=== PATIENT | female | born 1985 ===

== ENCOUNTER → 2024-05-10 09:45 | Outpatient (BNV) | payer OTHER, SELFPAY | PROVIDERS: PCP Internal Medicine; Visit Provider Internal Medicine | DX: Z12.31 Encounter for screening mammogram for malignant neoplasm of breast (principal) | CPT/HCPCS: 77063; 77067 ==

== ENCOUNTER 2024-05-10 09:46 | Outpatient (REF) | payer OTHER, SELFPAY ==
--- NOTE | ~2024-05-10 | MM_ITS ---
EXAMINATION: MM SCREENING DIGITAL BREAST TOMOSYNTHESIS, BILATERAL CLINICAL INFORMATION: Screening. Asymptomatic. COMPARISON: Mammography: Baseline. TECHNIQUE: Digital breast tomosynthesis is performed in both the craniocaudal and mediolateral oblique views along with computer-aided detection (CAD). Synthesized 2D images are generated from the tomosynthesis. FINDINGS: There are scattered areas of fibroglandular density (ACR BI-RADS breast composition Category b). There are no significant masses, abnormal calcifications, or other abnormalities. MM/MM tomosynthesis screening BI IMPRESSION: No mammographic evidence of malignancy. ASSESSMENT: BI-RADS BI-RADS 1 - Negative RECOMMENDATION: Routine annual mammography screening. 1 year F/U This examination should not preclude the clinical evaluation of a suspicious palpable abnormality. This patient's information was entered into a reminder system with a target due date for their next mammogram. Electronically signed by: Mimi Zavaleta DO 06/04/2024 10:09 AM EYAD
== END 2024-05-10 09:47 | disposition home or self-care (01) ==
LOC: HO.MAMMO 09:46
PROVIDERS: PCP Internal Medicine; Visit Provider Internal Medicine
DX: Z12.31 Encounter for screening mammogram for malignant neoplasm of breast (principal)
CPT/HCPCS: 77063; 77067

== ENCOUNTER 2024-08-19 14:18 | Outpatient (AMB) | payer OTHER, SELFPAY ==
--- NOTE | 2024-08-19 14:20 | A.OFFVIS_ITS ---
Vital Signs 08/19/24 14:21 Height 5 ft 2 in Weight 231 lb 2 oz BMI 42.3 BP 133/84 Blood Pressure Location Rt brachial Position Sitting Pulse 101 H Pulse Source Pulse Oximeter Pulse Oximetry (%) 97 Oxygen Delivery Method Room Air Intake Visit Reasons: Vertebrogenic low back pain Allergies mallory Allergy (Mild, Unverified 08/19/24 14:23) RASH latex [Latex] Allergy (Mild, Unverified 08/19/24 14:23) SWELLING HPI Comments Details: Jasmyne is very pleasant 39 years old female who presents in my office with complains on pain in the lower back with radiation into bilateral buttocks and intermittent numbness into bilateral lower extremities. She reports that this pain started in July of 2020. She reported that the pain started when she fell off of the ladder. She reports that prolonged sitting aggravates her pain. She reports flexing forward and flexing backwards makes her pain severe however flexing backwards aggravates her pain more than flexing forward. Because of her pain she can not sleep normally. She can do activity of daily living, she can take care of herself, she can not function normally. She has homemaker and she has children in her household. She is self mobile. Cold applications weather changes in movements aggravate her pain. Heat applications make her pain better. In terms of tissue damage he reports her pain as pulsing, throbbing, pounding, stabbing, lancinating, pinching, cramping, crushing, hot burning, scalding, searing, tingling, stinging, dull, hurting, heavy, tiring, exhausting, spreading, radiating, piercing, tiring squeezing and tearing sensation. She currently takes tramadol as needed for her pain. She received multiple images of her lower lumbar spine, she reports that those images are done at [facility]. She participate in physical therapy last time in 2020 she received such a bad pain aggravation that she decided not to participate in physical therapy anymore. She was under care of [facility] for extended period of time. She received bilateral L3 L4-5 medial branch block 05/05/2023 she reported no pain improvement, interlaminar epidural steroid injection 10/16/2023 which was effective only 4 days, she received consultation from Dr. Link [facility] neurosurgery who did not recommended surgery for this patient. Her past medical history: Type 2 diabetes diet control, depression, GERD, bipolar disorder, migraine headaches. Anxiety. Carpal tunnel syndrome and sleep apnea past surgical history: Hemorrhoidectomy 2014, appen dectomy 2004, hernia repair 1987, laparoscopic sleeve gastrectomy 2013, section umbilical hernia repair. She lives alone with 3 children. She denies smoking cigarettes drinking alcohol or use of the recreational drugs. [facility] Surgical History (Updated 08/19/24 @ 14:27 by Codie Young CMA) H/O section History of carpal tunnel release of both wrists H/O hemorrhoidectomy Hx of appendectomy H/O umbilical hernia repair Family History (Updated 08/19/24 @ 14:25 by Codie Young CMA) Mother Hypertension Diabetes Social History (Updated 08/19/24 @ 14:24 by Codie Young CMA) Household Members: Children Housing: Apartment Alcohol intake: current Alcohol intake frequency: a few times a month Patient Tobacco Use Status: Never used Tobacco Use of substances other than those prescribed or required for medical reasons: No Review of Systems Const Reports no additional complaints ENT Reports Normal hearing present Card Reports no additional complaints Resp Reports no additional complaints GI Reports no additional complaints Reports no additional complaints Musc Reports as per HPI Neuro Reports no additional complaints, Reports Normal hearing present, Denies Abnormal speech present, Denies confusion and Denies Sensory deficit (Neuro) Psych Reports as per HPI and Denies confusion Otf/Lymph Reports no additional complaints Physical Exam Vital Signs: Last Vital Signs Pulse 101 H 08/19/24 14:21 BP 133/84 08/19/24 14:21 Pulse Ox 97 08/19/24 14:21 Oxygen Delivery Method Room Air 08/19/24 14:21 BMI result Body Mass Index 42.3 Const General: no acute distress; No confusion Nutritional Appearance: obese morbidly obese Orientation/consciousness: patient oriented x3 and No confusion Eyes General: appearance normal, both eyes and all related structures Pupils: Equal, round and reactive pupils present EOM: EOMs intact bilaterally Neck Neck: Yes full ROM Chest Chest palpation & inspection: normal inspection of the chest Resp Effort & Inspection: normal respiratory effort, able to speak in complete sentences, normal respiratory pattern, no audible wheezes and no cough Cardio Jugular venous distension: no JVD GI Inspection: Yes normal to inspection Back/Spine/Pelvis Other: Able to stand on bilateral tiptoes in bilateral heels without difficulty. Flexing forward and flexing backwards aggravate her pain. She reports that flexing backwards aggravate her pain more than flexing forward. SLR is negative bilaterally. Jeremiah test is negative bilaterally. Neuro General: patient oriented x3, gait normal and No confusion Cranial nerves: Yes CN's II-XII intact bilaterally, Yes Equal, round and reactive pupils present, Yes Normal hearing present and Yes Ability to bilaterally elevate shoulders present Speech: No Abnormal speech present Gait exam (Neuro): Normal gait present Motor exam (neuro): 5/5 motor strength present throughout Sensory Exam: No Sensory deficit (Neuro) Extrem General: No pedal edema Psych Speech and movement: Normal speech and movement present Affect: normal affect Attitude: cooperative Thought process: Normal thought process present Thought content: Normal thought content present Insight: Good insight present (Psych) Judgement: Good judgement present (Psych) Results Reviewed Results Reviewed: MRI lumbar spine [facility] with and without contrast 01/06/2023 alignment vertebra marrow and discs: Alignment is normal. Vertebral body heights are preserved. Minimal Modic type 1 degenerative changes are noted at L3-L4 and L4-5. Disc desiccation L3-L4 through L5-S1 with mild loss of intervertebral disc height. Posterior annular fissure noted L3-L4 L4-5. Multilevel facet arthropathy including visualized lower thoracic levels. Conus is normal in signal and contour. Normal level of termination at L1. No abnormal intradural enhancement. Paraspinal soft tissues are unremarkable. Lawn L2: L1-L2: Facet spurring and ligamentum flavum thickening. No significant canal stenosis or neural foraminal narrowing. L2-L3: Facet spurring and ligamentum flavum thickening. No significant canal stenosis or neural foraminal narrowing. L3-L4: Disc bulge with small central protrusion. Ligamentum flavum thickening and facet arthropathy. No significant canal stenosis. Mild left and moderate right neural foraminal narrowing. L4-5: Diffuse disc bulge with central protrusion component which has a Riddhi or fissure ligamentum flavum thickening and facet arthropathy. Mild narrowing of the spinal canal with crowding but no definitive compression of the traversing L5 nerve roots. This is more pronounced on the left side than on the right. There is mild bilateral neural foraminal narrowing. Findings are not significantly changed. L5-S1: Disc bulge with small left subarticular protrusion. Facet spurring. Crowding of the traversing left S1 nerve roots although there is no definitive nerve root compression. No significant canal stenosis. Mild left and significant right neural foraminal narrowing. Assessment & Plan Assessment & Plan (1) Chronic pain syndrome: Code(s): G89.4 - Chronic pain syndrome Category: Medical (2) Vertebrogenic low back pain: Code(s): M54.51 - Vertebrogenic low back pain Category: Medical (3) Spondylosis of lumbar region without myelopathy or radiculopathy: Code(s): M47.816 - Spondylosis without myelopathy or radiculopathy, lumbar region Category: Medical (4) Disc degeneration, lumbar: Code(s): M51.369 - Other intervertebral disc degeneration, lumbar region without mention of lumbar back pain or lower extremity pain Category: Medical Plan This patient most likely suffering from multiple pain generators off of the lumbar spine. She has Modic type 1 changes at L3-L4 and L5 vertebra. She also has very pronounced facet arthropathy in the lower lumbar spine. She was approved for intercept BVN radiofrequency ablation. We need to resubmit the request to her insurance company to do it in our facility. With not a satisfactory outcome of intercept procedure diagnostic medial branch block can not be repeated for her to evaluate involvement of the facet arthropathy in generation of her pain. I requested the patient to bring us the disc from the [facility] radiology department's for proper planning of the BVN procedure. Coding Level of Care Code New Pt Level 3 (45700) Diagnoses Chronic pain syndrome G89.4 Vertebrogenic low back pain M54.51 Spondylosis of lumbar region without myelopathy or radiculopathy M47.816 Disc degeneration, lumbar M51.369
[2024-08-19 14:21] VITALS: BP 133/84; PULSE 101; O2SAT 97; BMI 42.3
== END 2024-08-19 14:55 | disposition home or self-care (01) ==
PROVIDERS: PCP Internal Medicine; Visit Provider Anesthesiology
DX: G89.4 Chronic pain syndrome (principal); M54.51 Vertebrogenic low back pain; M47.816 Spondylosis without myelopathy or radiculopathy, lumbar region; M51.369 Other intervertebral disc degeneration, lumbar region without mention of lumbar back pain or lower extremity pain
CPT/HCPCS: 99203

== ENCOUNTER → 2024-08-19 14:18 | Outpatient (BNVA) | payer OTHER, SELFPAY | PROVIDERS: PCP Internal Medicine; Visit Provider Anesthesiology | DX: M47.816 Spondylosis without myelopathy or radiculopathy, lumbar region (principal); M51.360 Other intervertebral disc degeneration, lumbar region with discogenic back pain only; G43.909 Migraine, unspecified, not intractable, without status migrainosus; G89.4 Chronic pain syndrome | CPT/HCPCS: 99202 ==

== ENCOUNTER 2024-10-27 09:28 | Outpatient (AMB) | payer OTHER, SELFPAY ==
[2024-10-27 09:52] VITALS: BP 135/90; PULSE 114; O2SAT 97; BMI 43.2
--- NOTE | 2024-10-27 09:52 | MHC.OFFVIS ---
Vital Signs 10/27/24 09:52 Height 5 ft 2 in Weight 236 lb BMI 43.2 BP 135/90 H Blood Pressure Location Lt brachial Pulse 114 H Pulse Oximetry (%) 97 Oxygen Delivery Method Room Air Intake Visit Reasons: Discuss Alternate Procedure Options Mobile Sales Assistant Required: No Allergies mallory Allergy (Mild, Unverified 10/27/24 09:53) RASH latex [Latex] Allergy (Mild, Unverified 10/27/24 09:53) SWELLING Medication List - Last Reconciled 10/27/24 by Yissel Lee, ENROLLED AGENT atomoxetine 18 mg PO QAM cariprazine (Vraylar) 6 mg PO DAILY lidocaine 5% 1 patch topical DAILY tramadol mg PO HPI Comments Details: Jasmyne is back in my office to discuss the situation at hands. Her insurance company [employer] considers intercept RFA procedure experimental. They also consider sprint PNS experimental as well. I recommended the patient to change her insurance for [employer]. Unfortunately the open enrollment period we will start only in June. The patient would be eligible for new insurance only in 2025. I decided to offer this patient therapeutic bilateral L3-L4 -L5* medial branch block therapeutic so the patient will not be suffering needlessly. I also recommended her to come to the office 1 day before the procedure so we can show her where on the back we need to place lidocaine patches. She was under care of [facility] and she received diagnostic medial branch block which resulted in very good pain relief. very pleasant 39 years old female who presents in my office with complains on pain in the lower back with radiation into bilateral buttocks and intermittent numbness into bilateral lower extremities. She reports that this pain started in July of 2020. She reported that the pain started when she fell off of the ladder. She reports that prolonged sitting aggravates her pain. She reports flexing forward and flexing backwards makes her pain severe however flexing backwards aggravates her pain more than flexing forward. Because of her pain she can not sleep normally. She can do activity of daily living, she can take care of herself, she can not function normally. She has homemaker and she has children in her household. She is self mobile. Cold applications weather changes in movements aggravate her pain. Heat applications make her pain better. In terms of tissue damage he reports her pain as pulsing, throbbing, pounding, stabbing, lancinating, pinching, cramping, crushing, hot burning, scalding, searing, tingling, stinging, dull, hurting, heavy, tiring, exhausting, spreading, radiating, piercing, tiring squeezing and tearing sensation. She currently takes tramadol as needed for her pain. She received multiple images of her lower lumbar spine, she reports that those images are done at [facility]. She participate in physical therapy last time in 2020 she received such a bad pain aggravation that she decided not to participate in physical therapy anymore. She was under care of [facility] for extended period of time. She received bilateral L3 L4-5 medial branch block 05/05/2023 she reported pain improvement, interlaminar epidural steroid injection 10/16/2023 which was effective only 4 days, she received consultation from Dr. Link [facility] neurosurgery who did not recommended surgery for this patient. Her past medical history: Type 2 diabetes diet control, depression, GERD, bipolar disorder, migraine headaches. Anxiety. Carpal tunnel syndrome and sleep apnea past surgical history: Hemorrhoidectomy 2014, appendectomy 2004, hernia repair 1987, laparoscopic sleeve gastrectomy 2013, section umbilical hernia repair. She lives alone with 3 children. She denies smoking cigarettes drinking alcohol or use of the recreational drugs. [facility] Surgical History (Updated 08/19/24 @ 14:27 by Codie Young CMA) H/O section History of carpal tunnel release of both wrists H/O hemorrhoidectomy Hx of appendectomy H/O umbilical hernia repair Family History (Updated 08/19/24 @ 14:25 by Codie Young CMA) Mother Hypertension Diabetes Social History (Updated 08/19/24 @ 14:24 by Codie Young CMA) Household Members: Children Housing: Apartment Alcohol intake: current Alcohol intake frequency: a few times a month Patient Tobacco Use Status: Never used Tobacco Review of Systems Const All systems reviewed & are unremarkable except as noted in HPI and below ENT Reports Normal hearing present Neuro Reports Normal hearing present, Denies Abnormal speech present, Denies confusion and Denies Sensory deficit (Neuro) Psych Denies confusion Physical Exam Vital Signs: Last Vital Signs Pulse 114 H 10/27/24 09:52 BP 135/90 H 10/27/24 09:52 Pulse Ox 97 10/27/24 09:52 Oxygen Delivery Method Room Air 10/27/24 09:52 BMI result Body Mass Index 43.2 Const General: no acute distress; No confusion Nutritional Appearance: obese morbidly obese Orientation/consciousness: patient oriented x3 and No confusion Eyes General: appearance normal, both eyes and all related structures Pupils: Equal, round and reactive pupils present EOM: EOMs intact bilaterally Neck Neck: Yes full ROM Chest Chest palpation & inspection: normal inspection of the chest Resp Effort & Inspection: normal respiratory effort, able to speak in complete sentences, normal respiratory pattern, no audible wheezes and no cough Cardio Jugular venous distension: no JVD GI Inspection: Yes normal to inspection Back/Spine/Pelvis Other: Able to stand on bilateral tiptoes in bilateral heels without difficulty. Flexing forward and flexing backwards aggravate her pain. She reports that flexing backwards aggravate her pain more than flexing forward. SLR is negative bilaterally. Jeremiah test is negative bilaterally. Neuro General: patient oriented x3, gait normal and No confusion Cranial nerves: Yes CN's II-XII intact bilaterally, Yes Equal, round and reactive pupils present, Yes Normal hearing present and Yes Ability to bilaterally elevate shoulders present Speech: No Abnormal speech present Gait exam (Neuro): Normal gait present Motor exam (neuro): 5/5 motor strength present throughout Sensory Exam: No Sensory deficit (Neuro) Extrem General: No pedal edema Psych Speech and movement: Normal speech and movement present Affect: normal affect Attitude: cooperative Thought process: Normal thought process present Thought content: Normal thought content present Insight: Good insight present (Psych) Judgement: Good judgement present (Psych) Results Reviewed Results Reviewed: MRI lumbar spine [facility] with and without contrast 01/06/2023 alignment vertebra marrow and discs: Alignment is normal. Vertebral body heights are preserved. Minimal Modic type 1 degenerative changes are noted at L3-L4 and L4-5. Disc desiccation L3-L4 through L5-S1 with mild loss of intervertebral disc height. Posterior annular fissure noted L3-L4 L4-5. Multilevel facet arthropathy including visualized lower thoracic levels. Conus is normal in signal and contour. Normal level of termination at L1. No abnormal intradural enhancement. Paraspinal soft tissues are unremarkable. Lawn L2: L1-L2: Facet spurring and ligamentum flavum thickening. No significant canal stenosis or neural foraminal narrowing. L2-L3: Facet spurring and ligamentum flavum thickening. No significant canal stenosis or neural foraminal narrowing. L3-L4: Disc bulge with small central protrusion. Ligamentum flavum thickening and facet arthropathy. No significant canal stenosis. Mild left and moderate right neural foraminal narrowing. L4-5: Diffuse disc bulge with central protrusion component which has a Ridhdi or fissure ligamentum flavum thickening and facet arthropathy. Mild narrowing of the spinal canal with crowding but no definitive compression of the traversing L5 nerve roots. This is more pronounced on the left side than on the right. There is mild bilateral neural foraminal narrowing. Findings are not significantly changed. L5-S1: Disc bulge with small left subarticular protrusion. Facet spurring. Crowding of the traversing left S1 nerve roots although there is no definitive nerve root compression. No significant canal stenosis. Mild left and significant right neural foraminal narrowing. Assessment & Plan Assessment & Plan (1) Chronic pain syndrome: Code(s): G89.4 - Chronic pain syndrome Category: Medical (2) Vertebrogenic low back pain: Code(s): M54.51 - Vertebrogenic low back pain Category: Medical (3) Spondylosis of lumbar region without myelopathy or radiculopathy: Code(s): M47.816 - Spondylosis without myelopathy or radiculopathy, lumbar region Category: Medical (4) Disc degeneration, lumbar: Code(s): M51.369 - Other intervertebral disc degeneration, lumbar region without mention of lumbar back pain or lower extremity pain Category: Medical Plan This patient most likely suffering from multiple pain generators off of the lumbar spine. She has Modic type 1 changes at L3-L4 and L5 vertebra. She also has very pronounced facet arthropathy in the lower lumbar spine. Her insurance company does not cover intercept BVN. It does not cover sprint PNS. I recommended her to change her insurance company. I also offered her L3-L4 dorsal ramus L5* bilateral therapeutic medial branch block with steroids to help her pain slightly better. Patient agreed to go for the procedure. She needs to come for the nursing visit on day before the procedure so we can show her were to apply lidocaine patches. Patient Instructions: I here by testify that I spent 32 minutes in conversation with this patient as well as planning her care evaluating her prior diagnostic records and organizing this note. Coding Level of Care Code Est Pt Level 4 (49517) Diagnoses Chronic pain syndrome G89.4 Vertebrogenic low back pain M54.51 Spondylosis of lumbar region without myelopathy or radiculopathy M47.816 Disc degeneration, lumbar M51.369
--- OUTSIDE RECORDS SUMMARY | 2024-10-27 10:41 | XMS_ITS | Clinical Summary ---
Author Organization [facility] Address [address] [place] [address] [address] [place] [address] Care Team Providers Care Clinical Informatics Physician Name Role Phone Unavailable Primary Care Provider Unavailabl e Allergies Active Allergy Reactions Criticality Noted Date Comments Will 04/23/2016 Latex Dermatitis,Hives 04/25/2016 Medications Vraylar 6 MG capsule Take 1 capsule by mouth Once per day. Active Encounters Date Type Department Care Team Description 09/07/2024 8:00 AM EST Office Visit [facility] ADULT DENTAL [address] [place] [address] Eddi Celaya Dental calculus (Primary Dx); Dental caries; Secondary dental caries associated with failed or defective dental rastafarian; Gingivitis from Last 3 Months Social History Tobacco Use Types Packs/Day Years Used Date Smoking Tobacco: Never Passive Smoke Exposure: Never Smokeless Tobacco: Never Tobacco Cessation:Counseling Given: Not Answered Comments Unknown Sex and Gender Information Value Date Recorded Sex Assigned at Female 07/15/2022 10:19 AM EDT Legal Sex Female 10:19 AM EDT Gender Identity Female 07/15/2022 10:19 AM EDT Sexual Orientation Straight 07/15/2022 10 :19 AM EDT Last Filed Vital Signs Vital Sign Reading Time Taken Comments Blood Pressure 134/80 09/07/2024 8:08 AM EST Pulse 75 09/07/2024 8:08 AM EST Temperature - - Respiratory Rate - - Oxygen Saturation - - Inhaled Oxygen Concentration - - Weight - - Height - - Body Mass Index - - Plan of Treatment Upcoming Encounters Date Type Department Care Team ([facility] st Contact Info) Description 11/25/2024 2:00 PM EDT Office Visit [facility] ADULT DENTAL [address] [place] [address] John Blevins DMD [address] [place] [address] Health Maintenance Due Date Last Done Comments Depression Screening 1983 HIV Screening 1983 Lipid Panel 1983 SDOH Screening 1983 Alcohol/Substance Use Screening 1995 Family Planning (PISQ) 1998 Hepatitis C Screening 2001 Hepatitis B Vaccines (1 of 3 - 19+ 3-dose series) 2002 Pap Smear 2004 Cervical Cancer Screening 2013 HPV/Cotest 2013 Mammogram 2023 Dental Oral Exam 03/09/2025 09/07/2024, , 12/06/2020, Additional history exists Dental Prophylaxis 03/09/2025 09/07/2024, 0 12/06/2020, 05/20/2017, Additional history exists Tobacco Screening 09/07/2025 09/07/2024 Dental X-Ray: Bitewings 09/08/2025 09/07/20, 04/12/2022, 12/06/2020, Additional history exists Dental X-Ray: Full Mouth 09/08/2027 09/07/2024, 08/05/2016 DTaP/Tdap/Td Vaccines (3 - Td or Tdap) 03/22/2031 03/22/2021, 06/12/2017 Zoster Vaccines (1 of 2) 2033 RSV Patients and Patients Aged 60 years or older (1 - 1-dose 75+ series) 2058 Pneumococcal Vaccine: Pediatrics (0 to 5 Years) and At-Risk Patients (6 to 49) Years) Completed 12/28/2021 COVID-19 Vaccine Completed 06/03/2024, , 01/31/2021 Influenza Vaccine Completed 06/03/2024, , 06/03/2020, Additional history exists HIB Vaccines Aged Out No longer eligi ble based on patient's age to complete this topic HPV Vaccines Aged Out No longer eligi ble based on patient's age to complete this topic Hepatitis A Vaccines Aged Out No long er eligible based on patient's age to complete this topic IPV Vaccines Aged Out No longer eligi ble based on patient's age to complete this topic Meningococcal Vaccine Aged Out No bonita chelsea eligible based on patient's age to complete this topic RSV under 20 months Aged Out No longe r eligible based on patient's age to complete this topic Rotavirus Vaccines Aged Out No longer eligible based on patient's age to complete this topic Procedures Procedure Name Priority Date/Time Associated Diagnosis Comments PERIODIC ORAL EVALUATION - ESTABLISHED PATIENT Routine 09/07/2024 8:00 AM EST Dental caries Secondary dental caries associated with failed or defective dental rastafarian Gingivitis COMPREHENSIVE PERIODONTAL EVALUATION - NEW OR ESTABLISHED PATIENT Routine 09/07/2024 8:00 AM EST Dental caries Secondary dental caries associated with failed or defective dental rastafarian Gingivitis ORAL HYGIENE INSTRUCTIONS Routine 2023 8:00 AM EST Dental caries Secondary dental caries associated with failed or defective dental rastafarian Gingivitis DIAGNOSTIC - DIAGNOSTIC IMAGING - INTRAORAL - COMPREHENSIVE SERIES OF RADIOGRAPHIC IMAGES Routine 09/07/2024 8:00 AM EST Dental caries Secondary dental caries associated with failed or defective dental rastafarian Gingivitis PROPHYLAXIS - ADULT Routine 09/07/2024 8 :00 AM EST Dental caries Secondary dental caries associated with failed or defective dental rastafarian Gingivitis ADJUNCTIVE GENERAL SERVICES - PROFESSIONAL VISITS - CASE PRESENTATION, SUBSEQUENT TO DETAILED AND EXTENSIVE TREATMENT PLANNING Routine 09/07/2024 8:00 AM EST Dental caries Secondary dental caries associated with failed or defective dental rastafarian Gingivitis 9 MIL COMPOSITE FILLING Routine 09/07/20 12:00 AM EST from Last 3 Months Insurance [facility] MEDICAID STAND ADULT
--- OUTSIDE RECORDS SUMMARY | 2024-10-27 10:41 | XMS_ITS | Encounter Summary ---
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 Impingement syndrome of left shoulder Procedures MR Shoulder wo Contrast Left Jesse Pierre MD [address] [address] Phone: tel: fax: [facility] [address] [place] [address] Phone: tel: Referral ID Status Reason Start Date Expiration Date V isits Requested Visits Authorized [id number] Pending Review 10/18/2024 10/18/2025 1 1 Reason for Visit * Reason Comments Follow-up Encounter Details Date Type Department Care Team (Latest Contact Info) Description 10/18/2024 10:30 AM EST Office Visit [facility] - [place] [address] 175 [facility] [address] [place] [address] Jesse Pierre MD 175 [facility] [address] [place] [address] 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 (Primary Dx); Impingement syndrome of left shoulder Social History Tobacco Use Types Packs/Day Years Used Date Smoking Tobacco: Never Smokeless Tobacco: Former Alcohol Use Standard Drinks/Week Comments Never 0 (1 standard drink = 0.6 oz pur e alcohol) Comments Unknown Sex and Gender Information Value Date Recorded Sex Assigned at Not on file Legal Sex Female 3:58 AM EST Gender Identity Not on file Sexual Orientation Not on file documented as of this encounter Last Filed Vital Signs Vital Sign Reading Time Taken Comments Blood Pressure - - Pulse - - Temperature - - Respiratory Rate - - Oxygen Saturation - - Inhaled Oxygen Concentration - - Weight 108 kg (238 lb) 10/18/2024 10:35 AM EST Height 157.5 cm (5' 2 ) 10/18/2024 10:35 AM EST Body Mass Index 43.53 10/18/2024 10:35 AM EST documented in this encounter Progress Notes * Jesse Pierre MD - 10/18/2024 10:30 AM EST Reason For Visit: Follow-up of the Left Shoulder Patient: Jasmyne Patten : 1985 VISIT DATE: 10/18/2024 HPI: Jasmyne Patten is a 39 y.o. year old female who presents follow up on her left shoulder. She had significant relief in her left shoulder for a few months after her last visit cortisone shot. Pain has returned. Fatigue and pain with any mid range arc of motion. Also has difficulty sleeping at night. ROS: GENERAL: negative MUSCULOSKELETAL: See HPI The remainder of the review of systems is noncontributory Allergies: Allergies Allergen Reactions Will Latex Rash Past Medical History: has a past medical history of Asthma, Bipolar disorder ([facility]), Esophageal reflux, Low back pain, Migraines, and Mood swings. Social History: Social History Tobacco Use Smoking status: Never Smokeless tobacco: Former Substance Use Topics Alcohol use: Never Past Surgeries: Past Surgical History: Procedure Laterality Date APPENDECTOMY PROCEDURE: HISTORICAL APPENDECTOMY BARIATRIC SURGERY PROCEDURE: PA LAPS GSTRC RSTRICTIV PX LONGITUDINAL GASTRECTOMY; COMMENT: Sleeve gastrectomy SECTION 06/11/2021 PROCEDURE: HISTORICAL DELIVERY OTHER SURGICAL HISTORY PROCEDURE: PA RPR UMBILICAL HRNA 5 YRS/> REDUCIBLE TUBAL LIGATION 06/11/2021 PROCEDURE: HISTORICAL TUBAL LIGATION Medications: Outpatient Medications Marked as Taking for the 10/18/24 encounter (Office Visit) with Jesse Pierre MD Medication Sig Dispense Refill acetaminophen (TYLENOL 8 HOUR) 650 mg 8 hr tablet Take 1 tablet (650 mg total) by mouth. Botox 200 unit injection famotidine (PEPCID) 40 mg tablet Take 1 tablet (40 mg total) by mouth at bedtime. lidocaine (LIDODERM) 5 % patch APPLY ONE PATCH UP TO A 12 HOUR PERIOD PER DAY NEEDED FOR PAIN. pantoprazole (PROTONIX) 40 mg EC tablet Take 1 tablet (40 mg total) by mouth 1 (one) time each day. traMADoL (ULTRAM) 50 mg tablet Take 1 tablet (50 mg total) by mouth every 6 (six) hours if needed. for moderate pain Max Daily Amount: 200 mg Vraylar 6 mg capsule Take 1 capsule (6 mg total) by mouth 1 (one) time each day. Physical Exam: Vitals: 10/18/24 1035 Weight: 108 kg (238 lb) Height: 1.575 m (62 ) APPEARANCE: Alert, oriented, no acute distress LEFTSHOULDER SHOULDER EXAM: LEFT Inspection: Normal-appearing shoulder. Palpation: Tenderness of the anterior lateral edge of the acromion at the greater tuberosity. No significant AC joint tenderness. ROM: Active near full range of motion Passive near full range of motion Neurovascular: No gross deficits distally Strength: 4/5 supraspinatus. Pain to resisted testing. Normal infraspinatus. Normal subscapularis. Special Tests: Positive Neer. Positive Gagnon. Imaging: ORTHO X-RAY EXAM OF SHOULDER (2 VIEWS) Left shoulder x-rays February 25, 2024. AP, Grashey, Y lateral, axillary views. Located glenohumeral joint with good preservation of the glenohumeral articular cartilage. No acute osseous abnormalities. Essentially normal x-rays. Assessment and Plan: 1. 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 Impingement syndrome of left shoulder Distant pain. Temporary relief from injection. Limiting daily activities. At this point, I am goingto order an MRI. Will also place referral for physical therapy. 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 ??No tendon retraction. Biceps tendinosis. Thickening and high signal of the inferior glenohumeral joint capsule with high signal in the rotator interval and relative paucity of glenohumeral joint fluid. ??Constellation of findings suggests adhesive capsulitis. Curved acromial undersurface with lateral acromial downsloping. ??Findings predispose the patient to impingement. Small subacromial/subdeltoid bursal fluid which may reflect bursitis and/or joint fluid extending through the rotator cuff defect. -------- FINAL REPORT -------- Dictated By: CHERELLE GARCIA Dictated Date: 10/21/2024 11:00 ET Assigned Physician: CHERELLE GARCIA Reviewed and Electronically Signed By: CHERELLE GARCIA Signed Date: 10/21/2024 11:18 ET Workstation ID: [id number] Transcribed By: Self Edit Transcribed Date: 10/21/2024 11:00 ET Narrative 10/21/2024 11:18 AM EST PROCEDURE: Left shoulder MRI INDICATION: Pain TECHNIQUE: Multiplanar, multisequence MRI of the left shoulder Without contrast. COMPARISON: ??No priors available. FINDINGS: Advanced rotator cuff tendinosis with focal full-thickness tear of the posterior supraspinatus fibers measuring approximately 10 mm in AP dimension approximately 1.5 cm from the footprint. ??No tendon retraction. Infraspinatus and subscapularis tendinosis without tear. Muscle bulk is preserved. Biceps tendon is present within the bicipital groove and intact at the superior glenoid tubercle. ??Biceps tendinosis at the intra-articular portion. No labral tear. Glenohumeral alignment is preserved. ??No focal cartilage defects. ??No glenohumeral joint effusion. Thickening and high signal of the inferior glenohumeral joint capsule with high signal in the rotator interval and relative paucity of glenohumeral joint fluid. Glenohumeral and coracoclavicular ligaments are intact. Acromioclavicular joint is normal. ??Curved acromial undersurface with lateral acromial downsloping. ??Small subacromial/subdeltoid bursal fluid. No fracture or suspicious marrow replacing lesion. No axillary adenopathy or soft tissue mass. Procedure Note Cherelle Garcia MD - 10/21/2024 PROCEDURE: Left shoulder MRI INDICATION: Pain TECHNIQUE: Multiplanar, multisequence MRI of the left shoulder Withoutcontrast. COMPARISON: No priors available. FINDINGS: Advanced rotator cuff tendinosis with focal full-thickness tear of theposterior supraspinatus fibers measuring approximately 10 mm in APdimension approximately 1.5 cm from the footprint. No tendonretraction. Infraspinatus and subscapularis tendinosis without tear. Muscle bulk is preserved. Biceps tendon is present within the bicipital groove and intact at thesuperior glenoid tubercle. Biceps tendinosis at the intra-articularportion. No labral tear. Glenohumeral alignment is preserved. No focal cartilage defects. Noglenohumeral joint effusion. Thickening and high signal of the inferior glenohumeral joint capsule withhigh signal in the rotator interval and relative paucity of glenohumeraljoint fluid. Glenohumeral and coracoclavicular ligaments are intact. Acromioclavicular joint is normal. Curved acromial undersurface withlateral acromial downsloping. Small subacromial/subdeltoid bursalfluid. No fracture or suspicious marrow replacing lesion. No axillary adenopathy or soft tissue mass. IMPRESSION: Advanced rotator cuff tendinosis with focal full-thickness tear of theposterior supraspinatus fibers. No tendon retraction. Biceps tendinosis. Thickening and high signal of the inferior glenohumeral joint capsule withhigh signal in the rotator interval and relative paucity of glenohumeraljoint fluid. Constellation of findings suggests adhesive capsulitis. Curved acromial undersurface with lateral acromial downsloping. Findingspredispose the patient to impingement. Small subacromial/subdeltoid bursal fluid which may reflect bursitisand/or joint fluid extending through the rotator cuff defect. 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 traMADoL (ULTRAM) 50 mg tablet Take 1 tablet (50 mg total) by mouth every 6 (six) hours if needed. for moderate pain Max Daily Amount: 200 mg 03/02/2024 pantoprazole (PROTONIX) 40 mg EC tablet Take 1 tablet (40 mg total) by mouth 1 (one) time each day. 01/03/2024 Botox 200 unit injection 04/21/2024 lidocaine (LIDODERM) 5 % patch APPLY ONE PATCH UP TO A 12 HOUR PERIOD PER DAY NEEDED FOR PAIN. 05/13/2024 famotidine (PEPCID) 40 mg tablet Take 1 tablet (40 mg total) by mouth at bedtime. 02/02/2024 Vraylar 6 mg capsule Take 1 capsule (6 mg total) by mouth 1 (one) time each day. 08/17/2024 acetaminophen (TYLENOL 8 HOUR) 650 mg 8 hr tablet Take 1 tablet (650 mg total) by mouth. 03/25/2022 added in this encounter Care Teams Program Supervisor Relationship Specialty Start Date End Date Cipriano Louie DO [address] [facility] [address] [place] [id number] PCP - General 07/28/23 documented as of this encounter
--- OUTSIDE RECORDS SUMMARY | 2024-10-27 10:41 | XMS_ITS | Encounter Summary ---
Author Organization [facility] Address [address] [place] [address] [address] [place] [address] Care Team Providers Care Land Lease Information Clerk Name Role Phone Unavailable Primary Care Provider Unavailabl e Encounter Details Date Type Department Care Team (Latest Contact Info) Description 04/12/2022 Abstract [facility] CONVERSIONS Dental, Provider, DDS Social History Tobacco Use Types Packs/Day Years Used Date Smoking Tobacco: Never Assessed Comments Unknown Sex and Gender Information Value Date Recorded Sex Assigned at Female 07/15/2022 10:19 AM EDT Legal Sex Female 10:19 AM EDT Gender Identity Female 07/15/2022 10:19 AM EDT Sexual Orientation Straight 07/15/2022 10 :19 AM EDT documented as of this encounter Plan of Treatment Upcoming Encounters Date Type Department Care Team (Late st Contact Info) Description 11/25/2024 2:00 PM EDT Office Visit [facility] ADULT DENTAL [address] [place] [address] John Blevins, TARUN [address] [place] [address] documented as of this encounter Visit Diagnoses Not on filedocumented in this encounter
--- OUTSIDE RECORDS SUMMARY | 2024-10-27 10:41 | XMS_ITS | Encounter Summary ---
Author Organization [facility] Address [address] [place] [address] [address] [place] [address] Care Team Providers Care [place] Steward Name Role Phone Unavailable Primary Care Provider Unavailabl e Encounter Details Date Type Department Care Team (Latest Contact Info) Description 12/06/2020 Abstract [facility] CONVERSIONS Dental, Provider, DDS Social History Tobacco [...] Description 11/25/2024 2:00 PM EDT Office Visit [facility] CHC ADULT DENTAL [address] [place] [address] John Blevins, TARUN [address] [place] [address] documented as of this encounter Visit Diagnoses Not on filedocumented in this encounter
--- OUTSIDE RECORDS SUMMARY | 2024-10-27 10:41 | XMS_ITS | Encounter Summary ---
Author Organization [facility] Address [address] [place] [address] Care Team Providers Care Industrial Millwright Name Role Phone Cipriano Louie DO Primary Care Provider [phone] Encounter Details Date Type Department Care Team ([facility] st Contact Info) Description 10/21/2024 Telephone Orthopedic Surgery - [place] 160 175 [facility] [address] [place] [address] Sparkle Dias PA 175 [facility] 160 [place] [address] Social History Tobacco Use Types Packs/Day Years [...] on file documented as of this encounter Progress Notes * YESENIA Lacey - 10/21/2024 3:37 PM EST Patient called; LM on . Detailing message from Dr Pierre below. She will call back for pre-op appointment or reach out if additional questions YESENIA Lacey * YESENIA Lacey - 10/21/2024 3:37 PM EST ----- Message from Leonila Pierre MD sent at 10/21/2024 1:19 PM EST ----- Please let her know that there is a tear of her rotator cuff and at this point recommend surgery given her lack of response to conservative treatment In to see me for a preop if she wants surgery documented in this encounter Plan of Treatment Upcoming Encounters Date Type Department Care Team (Late st Contact Info) Description 11/15/2024 9:00 AM EST Consult Orthopedic Surgery - [place] [address] [facility] [address] [place] [phone] Jesse Pierre MD [address] [facility] [address] [place] [address] [place] [address] documented as of this encounter Visit Diagnoses Not on filedocumented in this encounter Care Teams Industrial Millwright Relationship Specialty Start Date End Date Cipriano Louie DO [address] [place] [id number] PCP - General 07/28/23 documented as of this encounter
--- OUTSIDE RECORDS SUMMARY | 2024-10-27 10:41 | XMS_ITS | Encounter Summary ---
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 Impingement syndrome of left shoulder Procedures MR Shoulder wo Contrast Left Jesse Pierre MD [address] [address] Phone: tel: fax: [address] [address] Phone: tel: Referral ID Status Reason Start Date Expiration Date V isits Requested Visits Authorized [id number] Pending Review 10/18/2024 10/18/2025 1 1 Reason for Visit 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 Impingement syndrome of left shoulder Procedures MR Shoulder wo Contrast Left Jesse Pierre MD [address] [address] Phone: tel: fax: [address] [address] Phone: tel: Referral ID Status Reason Start Date Expiration Date V isits Requested Visits Authorized [id number] Pending Review 10/18/2024 10/18/2025 1 1 Encounter Details Date Type Department Care Team (Latest Contact Info) Description 10/20/2024 7:33 PM EST - 10/20/2024 11:59 PM EST Hospital Encounter [facility] MRI [address] [place] [address] 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 03/25/2022 Botox 200 unit injection 04/21/2024 famotidine (PEPCID) 40 mg tablet Take 1 tablet (40 mg total) by mouth at bedtime. 02/02/2024 ibuprofen-glycer in 600 mg kit 600 mg, 1, tablet, By Mouth, Every 6 hours, PRN, # 40 tablet, Refills 0, Maintenance, Pain , Mild for pain, 10/07/22 2:24:00 PM EST, Partial fill upon patient request if the prescription is for a schedule II opioid drug. 10/07/2022 lidocaine (LIDODERM) 5 % patch APPLY ONE PATCH UP TO A 12 HOUR PERIOD PER DAY NEEDED FOR PAIN. 05/13/2024 pantoprazole (PROTONIX) 40 mg EC tablet Take 1 tablet (40 mg total) by mouth 1 (one) time each day. 01/03/2024 traMADoL (ULTRAM) 50 mg tablet Take 1 tablet (50 mg total) by mouth every 6 (six) hours if needed. for moderate pain Max Daily Amount: 200 mg 03/02/2024 Vraylar 6 mg capsule Take 1 capsule (6 mg total) by mouth 1 (one) time each day. 08/17/2024 documented as of this encounter Discharge Disposition Disposition Code Departure Means Destination Home or Self Care documented in this encounter Plan of Treatment Upcoming Encounters Date Type Department Care Team (Late st Contact Info) Description 11/15/2024 9:00 AM EST Consult Orthopedic Surgery - [place] 160 175 [facility] [address] [place] [id number] Jesse Pierre MD 175 [facility] [address] [place] [address] documented as of this encounter Procedures Procedure Name Priority Date/Time Associated Diagnosis Comments MR SHOULDER WO CONTRAST LEFT Routine 10/20/2024 7:48 PM EST 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 Impingement syndrome of left shoulder documented in this encounter Results * MR Shoulder wo [...] Signed Date: 10/21/2024 11:18 ET Workstation ID: [id number] Transcribed By: Self Edit Transcribed Date: 10/21/2024 [...] Signed Date: 10/21/2024 11:18 ET Workstation ID: [id number] Transcribed By: Self Edit Transcribed Date: 10/21/2024 11:00 ET us Jesse Pierre MD IMG MRI PROCEDURES Final Resul t documented in this encounter Visit Diagnoses Diagnosis 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
--- OUTSIDE RECORDS SUMMARY | 2024-10-27 10:42 | XMS_ITS | Clinical Summary ---
Author Organization 175 [facility] Address 175 [place] [address] Phone Care Team Providers Care Coal Passer Name Role Phone Cipriano Louie DO Primary Care Provider [phone] Allergies Active Allergy Reactions Criticality Noted Date Comments Will 05/18/2021 Latex Rash 05/18/2021 Medications acetaminophen (TYLENOL 8 HOUR) 650 mg 8 hr tablet Take 1 tablet (650 mg total) by mouth. 2 Active Vraylar 6 mg capsule Take 1 capsule (6 mg total) by mouth 1 (one) time each day. 4 Active famotidine (PEPCID) 40 mg tablet Take 1 tablet (40 mg total) by mouth at bedtime. 4 Active lidocaine (LIDODERM) 5 % patch APPLY ONE PATCH UP TO A 12 HOUR PERIOD PER DAY NEEDED FOR PAIN. 4 Active Botox 200 unit injection 4 Active pantoprazole (PROTONIX) 40 mg EC tablet Take 1 tablet (40 mg total) by mouth 1 (one) time each day. 4 Active traMADoL (ULTRAM) 50 mg tablet Take 1 tablet (50 mg total) by mouth every 6 (six) hours if needed. for moderate pain Max Daily Amount: 200 mg 4 Active ibuprofen-glyce rin 600 mg kit 600 mg, 1, tablet, By Mouth, Every 6 hours, PRN, # 40 tablet, Refills 0, Maintenance, Pain , Mild for pain, 10/07/22 2:24:00 PM EST, Partial fill upon patient request if the prescription is for a schedule II opioid drug. 3 Active cyclobenzaprine (FLEXERIL) 5 mg tablet Take 1 Tablet by mouth 3 times daily as needed. - Oral Route: Take 1 Tablet by mouth 3 times daily as needed. - Oral Active triamcinolone acetonide (KENALOG-40) 40 mg/mL injection Inject 1 mL into the articular space once for 1 dose. 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; Impingement syndrome of left shoulder Discharge Disposition: Home or Self Care 10/18/2024 10:30 AM EST Office Visit Orthopedic Surgery [facility] 160 175 [facility] 160 [place] [phone] Jesse Pierre MD 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 (Primary Dx); Impingement syndrome of left shoulder from Last 3 Months Surgical History Surgery Date Site/Laterality Comments OTHER SURGICAL HISTORY PROCEDURE: CT RPR UMBILICAL HRNA 5 YRS/> REDUCIBLE APPENDECTOMY PROCEDURE: HISTORICAL APPENDECTOMY BARIATRIC SURGERY PROCEDURE: CT LAPS GSTRC RSTRICTIV PX LONGITUDINAL GASTRECTOMY; COMMENT: Sleeve gastrectomy SECTION 06/11/2021 PROCEDURE: HISTORICAL DELIVERY TUBAL LIGATION 06/11/2021 PROCEDURE: HISTORICAL TUBAL LIGATION Medical History Medical History Date Comments Bipolar disorder (CMS/HCC) DX:Bi polar disorder (HCC) Migraines DX:Migraines Asthma DX:Asthma Mood swings DX:Mood swings Low back pain DX:Low back pain Esophageal reflux DX:Esophageal reflux Social History Tobacco Use Types Packs/Day Years Used Date Smoking Tobacco: Never Smokeless Tobacco: Former Alcohol Use Standard Drinks/Week Comments Never 0 (1 standard drink = 0.6 oz pur e alcohol) Comments Unknown Sex and Gender Information Value Date Recorded Sex Assigned at Not on file Legal Sex Female 3:58 AM EST Gender Identity Not on file Sexual Orientation Not on file Obstetrics History Last Filed Vital Signs Vital Sign Reading Time Taken Comments Blood Pressure 127/83 03/05/2022 10:45 AM EDT L Arm Pulse 77 03/05/2022 10:45 AM EDT Temperature - - Respiratory Rate - - Oxygen Saturation - - Inhaled Oxygen Concentration - - Weight 108 kg (238 lb) 10/18/2024 10:35 AM EST Height 157.5 cm (5' 2 ) 10/18/2024 10:35 AM EST Body Mass Index 43.53 10/18/2024 10:35 AM EST Plan of Treatment Upcoming Encounters Date Type Department Care Team ([facility] st Contact Info) Description 11/15/2024 9:00 AM EST Consult Orthopedic Surgery - [place] 160 175 [facility] [address] [place] [address] Jesse Pierre MD 175 [facility] 160 [place] [address] Health Maintenance Due Date Last Done Comments Breast Cancer Screening 1983 Diabetes: Annual GFR (Glomerular Filtration Rate) 1983 Diabetes: Annual Foot Exam 1993 Diabetes: Annual Retina Eye Exam 1993 Hepatitis B Vaccines (1 of 3 - 19+ 3-dose series) 2002 Cervical Cancer Screening: Pap Smear 2004 Cholesterol Screening (Lipid Panel) 08/25/2022 Depression Screening 08/25/2022 HIV Screening 08/25/2022 Hepatitis C Screening 08/25/2022 Social Influencers of Health Screening 08/25/2022 Diabetes: Annual Urine Albumin-Creatinine Ratio (uACR) 10/19/2024 Diabetes: Blood Sugar Control Test (HGBA1C) 10/19/2024 DTaP,Tdap,and Td Vaccines (3 - Td or Tdap) 03/22/2031 03/22/2021, 06/12/2017 Pneumococcal Vaccine: Pediatrics (0 to 5 Years) and At-Risk Patients (6 to 64 Years) Completed 12/28/2021 COVID-19 Vaccine Completed 06/03/2024, [...] on patient's age to complete this topic MMR Vaccines Aged Out No longer eligi ble based on patient's age to complete this topic Meningococcal ACWY Vaccine Aged Out N o longer eligible based on patient's age to complete this topic Meningococcal B Vacine Aged Out No lo nger eligible based on patient's age to complete this topic RSV Immunization Patients Under 20 months Aged Out No longer eligible based on patient's age to complete this topic Varicella Vaccines Aged Out No longer eligible based on patient's age to complete this topic Procedures Procedure Name Priority Date/Time Associated Diagnosis Comments MR SHOULDER WO CONTRAST LEFT Routine 10/20/2024 7:48 PM EST 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 Care Teams Coal Passer Relationship Specialty Start Date End Date Cipriano Louie DO [address] [place] [address] PCP - General 07/28/23
== END 2024-10-27 10:11 | disposition home or self-care (01) ==
PROVIDERS: PCP Internal Medicine; Visit Provider Anesthesiology
DX: G89.4 Chronic pain syndrome (principal); M54.51 Vertebrogenic low back pain; M47.816 Spondylosis without myelopathy or radiculopathy, lumbar region; M51.369 Other intervertebral disc degeneration, lumbar region without mention of lumbar back pain or lower extremity pain
CPT/HCPCS: 99214

== ENCOUNTER → 2024-10-27 09:28 | Outpatient (BNVA) | payer OTHER, SELFPAY | PROVIDERS: PCP Internal Medicine; Visit Provider Anesthesiology | DX: M47.816 Spondylosis without myelopathy or radiculopathy, lumbar region (principal); M51.369 Other intervertebral disc degeneration, lumbar region without mention of lumbar back pain or lower extremity pain; M54.51 Vertebrogenic low back pain; G89.4 Chronic pain syndrome | CPT/HCPCS: 99212 ==

== ENCOUNTER 2025-05-23 09:30 | Outpatient (REF) | payer OTHER, SELFPAY ==
--- OUTSIDE RECORDS SUMMARY | 2025-05-18 10:30 | XMS_ITS | Encounter Summary ---
Author Organization [employer] Address [address] [place] [address] Care Team Providers Care Sap Bpc Developer Name Role Phone Maritza Chowdary MD Primary Care Provider [phone] Reason for Visit * Reason Comments Post-op Encounter Details Date Type Department Care Team (Late st Contact Info) Description 05/18/2025 10:30 AM EDT Office Visit Orthopedic Surgery - [place] 160 [address] [facility] [address] [place] [address] Sparkle Dias PA 175 [facility] [address] [place] [address] S/P left rotator cuff repair (Primary Dx); Post-operative state Social History Tobacco Use Types Packs/Day Years Used Date Smoking Tobacco: Former Cigarettes Q uit: 2020 Smokeless Tobacco: Former Alcohol Use Standard Drinks/Week Comments Yes 0 (1 standard drink = 0.6 oz pur e alcohol) occasional Interpersonal Safety Answer Date Record ed Physical Abuse 05/03/2025 Verbal Abuse 05/03/2025 Comments No Sex and Gender Information Value Date Recorded Sex Assigned at Female 04/25/2025 2:14 PM EDT Legal Sex Female 3:58 AM EST Gender Identity Female 04/25/2025 2:14 PM EDT Sexual Orientation Not on file documented as of this encounter Progress Notes * YESENIA Lacey - 05/18/2025 10:30 AM EDT Patient: Jasmyne Patten : 1985 Date: 05/18/25 Chief Complaint: Chief Complaint Patient presents with Left Shoulder - Post-op I have obtained verbal consent from Jasmyne Patten prior to the recording. I have advised Jasmyne Patten that she may refuse the recording and require the recording to be turned off at any time during this encounter. HPI: Jasmyne Patten is a 39 y.o. year old female who presents for post-operative exam. Pt presents for 2 week follow up after procedure noted below. DOS: 05/03/25 Surgeon: Dr Jesse Pierre Procedure: Left rotator cuff repair; single anchor; Augmentation; SAD; hypermobile Glenohumeral joint Slin weeks Rehab: RCR large History of Present Illness The patient is a 39-year-old female presenting for follow-up two weeks post left rotator cuff repair with augmentation and subacromial decompression. intraoperative findings revealed a hypermobile glenohumeral joint Postoperative Pain - Reports pain rated at 2-3/10 - Notes intermittent use of a less bulky sling, - Continues to use a cryotherapy cuff for pain management - Current medication regimen for DVTp includes aspirin twice daily for one additional week - Discontinued acetaminophen and celecoxib - Reports sparing use of oxycodone, approximately 3-4 doses total - no lopnger needed - Denies fever, chills, myalgia, or other systemic symptoms Physical Therapy - Initiated physical therapy yesterday at [facility] spine and sports - Focuses on passive range of motion (ROM) exercises and prescribed home exercises Additional Information - Currently unemployed due to chronic back issues - Finds the [employer] application beneficial for her recovery - Sutures were removed during today's visit - Uses a pillow for support while sleeping Allergies: Allergies Allergen Reactions Latex Rash swelling Will Rash Medications: Current Outpatient Medications Medication Instructions acetaminophen (TYLENOL) 1,000 mg, oral, Every 8 hours scheduled aspirin 325 mg, oral, 2 times daily, To prevent Blood Clots; Take twice a day for 3 wks celecoxib (CELEBREX) 200 mg, oral, 2 times daily famotidine (PEPCID) 40 mg, Nightly ferrous sulfate 325 mg, 3 times daily with meals lamoTRIgine (LaMICtal) 25 mg tablet Take 2 tablets (50 mg total) by mouth 2 (two) times a day. pantoprazole (PROTONIX) 40 mg, Daily Vraylar 6 mg, Daily Physical Exam: There were no vitals filed for this visit. There is no height or weight on file to calculate BMI. Physical Exam APPEARANCE: Alert and in no acute distress Shoulder: Left Inspection: No bony abnormalities, normal muscle bulk symmetry Vascular: Warm and well perfused in the affected extremity and no peripheral edema noted. Incision: Five well-healed shoulder arthroscopy portal incisions Palpation: AC joint/distal clavicle region: None anterior shoulder /proximal biceps region: Mild anterior pain posterior periscapular region: Nontender lateral acromial /greater tuberosity region: Moderate lateral pain Range of motion: Abduction: Not tested Forward Flexion: Not tested External Rotation: Not tested Internal Rotation: Not tested Muscle strength: Supraspinatus (empty can test): Not tested infraspinatus (external rotation strength with arm at the side): Not tested subscapularis (belly press test ): Not tested Images: XR Shoulder 2+ Views Left Date of Visit: 05/18/25 Reason for visit: Left shoulder post-op Views: AP and Y-view left shoulder Comparison: 02/24/25 Findings: Humeral head appears smooth. Glenohumeral joint space and articular margins are intact. Scapular Y shows the glenohumeral joint located and centered No unusual calcifications. No fractures/ dislocations noted Expected post op changes noted in humeral head - subtle. Impression: Left shoulder: Intact left shoulder No acute osseous pathology Appropriate postoperative changes noted as above Read by: Sparkle Dias PA-C Assessment and Plan: 1. S/P left rotator cuff repair 2. Post-operative state This is a 39 y.o. year old female who is now 2 week status post Procedure noted above. The nature of the surgical procedure was reviewed with the patient and questions were answered to the best of my abilities. Assessment & Plan Postoperative status following left rotator cuff repair with augmentation and subacromial decompression Recovery progressing satisfactorily. Hypermobility of glenohumeral joint requires slower recovery to prevent recurrence. -Activity: Continue cryo cuff use, especially post-therapy. Use larger sling during sleep until 6 weeks post-op; simple tasks allowed with arm at side starting at 4 weeks -Rehabilitation: Inform physical therapist of slower recovery pace due to hypermobility. -Anticoagulation: Aspirin BID for 1 more week. Follow-up: 08/03/2025 Follow up: Patient to follow up at 3 month Postop. Patient educated follow-up sooner for worsening pain or any other concerns. Patient verbalized understanding and agreement with plan denies any questions or concerns this time. Orders Placed This Encounter XR Shoulder 2+ Views Left Follow up in about 11 weeks (around 08/03/2025) for Post-Op, Left, Shoulder. Future appointments: 08/03/2025 Today's documentation was made using voice recognition software.This note may contain grammatical errors secondary to this software. YESENIA Lacey documented in this encounter Plan of Treatment Upcoming Encounters Date Type Department Care Team (Late st Contact Info) Description 08/03/2025 9:00 AM EST Office Visit Orthopedic Surgery - [place] 160 175 [facility] [address] [place] [address] Sparkle Dias PA 175 [facility] [address] [place] [address] documented as of this encounter Results * XR Shoulder 2+ Views Left (05/18/2025 10:23 AM EDT) Anatomical Region Laterality Modality Upper Extremities, Shoulder Left Comp uted Radiography Narrative 05/18/2025 10:40 AM EDT Date of Visit: 05/18/25 Reason for visit: Left shoulder post-op Views: AP and Y-view left shoulder Comparison: 02/24/25 Findings: Humeral head appears smooth. Glenohumeral joint space and articular margins are intact. Scapular Y shows the glenohumeral joint located and centered No unusual calcifications. No fractures/ dislocations noted Expected post op changes noted in humeral head - subtle. Impression: Left shoulder: Intact left shoulder No acute osseous pathology Appropriate postoperative changes noted as above Read by: Sparkle NEWC us Sparkle PATTERSON IMG XR PROCEDURES Final Resul t documented in this encounter Visit Diagnoses Diagnosis S/P left rotator cuff repair- Primary Post-operative state Other postprocedural status documented in this encounter Care Teams Sap Bpc Developer Relationship Specialty Start Date End Date Maritza Chowdary MD [address] [facility] [place] [address] PCP - General Internal Medicine 04/25/25 documented as of this encounter
--- NOTE | ~2025-05-23 | MM_ITS ---
EXAMINATION: MM SCREENING DIGITAL BREAST TOMOSYNTHESIS, BILATERAL CLINICAL INFORMATION: Screening. Asymptomatic. COMPARISON: Mammography: Comparison is made with available priors TECHNIQUE: Digital breast mammography with tomosynthesis is performed in both the craniocaudal and mediolateral oblique views along with computer-aided detection (CAD). FINDINGS: There are scattered areas of fibroglandular density (ACR BI-RADS breast composition Category b). There are no significant masses, abnormal calcifications, or other abnormalities. MM/MM tomosynthesis screening BI IMPRESSION: No mammographic evidence of malignancy. ASSESSMENT: BI-RADS BI-RADS 1 - Negative RECOMMENDATION: Routine annual mammography screening. 1 year F/U This examination should not preclude the clinical evaluation of a suspicious palpable abnormality. This patient's information was entered into a reminder system with a target due date for their next mammogram. Electronically signed by: Mimi Zavaleta DO 05/24/2025 04:41 PM EDT
--- OUTSIDE RECORDS SUMMARY | 2025-05-23 10:47 | XMS_ITS | Clinical Summary ---
Author Organization [email or web address] [facility] Address [address] [place] [address] [address] [place] [address] Care Team Providers Care Senior Java Web Developer Name Role Phone Unavailable Primary Care Provider Unavailabl e Allergies Active Allergy Reactions Criticality Noted Date Comments Will 04/23/2016 Latex Dermatitis,Hives 04/25/2016 Medications Vraylar 6 MG capsule Take 1 capsule by mouth Once per day. Active pantoprazole (ProtoNix) 40 MG EC tablet Take 40 mg by mouth Once per day. 09/11/2022 Active famotidine (Pepcid) 40 MG tablet Take 40 mg by mouth at bedtime. 02/02/2024 Active lamoTRIgine (LaMICtal) 25 MG tablet TAKE 1 TABLET BY MOUTH EVERY MORNING FOR 2 WEEKS THEN INCREASE TO 1 TABLET TWICE A DAY 12/15/2024 Active Active Problems Problem Noted Date Diagnosed Date Anxiety with depression 11/25/2024 PTSD (post-traumatic stress disorder) 11/25/2024 Bipolar affective 11/25/2024 Chronic back pain 11/25/2024 Chronic pain of multiple joints 11/25/2024 Diabetes mellitus type 2, noninsulin dependent 0 11/25/2024 Gastroesophageal reflux disease 11/25/2024 Generalized headaches 11/25/2024 Gestational diabetes 11/25/2024 Heavy period 11/25/2024 Insomnia 11/25/2024 Irritability 11/25/2024 Lumbar facet arthropathy 11/25/2024 Migraine 11/25/2024 Mild intermittent asthma 11/25/2024 Neck pain 11/25/2024 Paresthesia of lower extremity 11/25/2024 Rash 11/25/2024 Seasonal allergic rhinitis 11/25/2024 Morbid obesity 11/25/2024 Severe obesity 11/25/2024 Sleep apnea 11/25/2024 Smoker 11/25/2024 SOB (shortness of breath) 11/25/2024 Bilateral carpal tunnel syndrome 12/29/2021 De Quervain's tenosynovitis, bilateral Encounters Date Type Department Care Team Description 04/19/2025 10:00 AM EDT Office Visit [facility] ADULT D[facility]AL [address] [place] [address] John Blevins DMD Dental caries (Primary Dx) 04/06/2025 1:00 PM EDT Office Visit [facility] ADULT [facility] [address] [place] [address] Sanam Haque Dental calculus (Primary Dx); Dental plaque; Dental caries 03/24/2025 9:00 AM EDT Office Visit [facility] ADULT [facility] [address] [place] [address] John Blevins DMD Full coverage crown needed for tooth at risk for fracture (Primary Dx) 03/08/2025 10:00 AM EDT Office Visit [facility] [address] [place] [address] John Blevins DMD Full coverage crown needed for tooth at risk for fracture (Primary Dx); Dental caries from Last 3 Months Social History Tobacco Use Types Packs/Day Years Used Date Smoking Tobacco: Never Passive Smoke Exposure: Never Smokeless Tobacco: Never Tobacco Cessation:Counseling Given: Not Answered Alcohol Use Standard Drinks/Week Comments Defer 0 (1 standard drink = 0.6 oz pur e alcohol) Comments Unknown Sex and Gender Information Value Date Recorded Sex Assigned at Female 07/15/2022 10:19 AM EDT Legal Sex Female 10:19 AM EDT Gender Identity Female 07/15/2022 10:19 AM EDT Sexual Orientation Straight 07/15/2022 10 :19 AM EDT Last Filed Vital Signs Vital Sign Reading Time Taken Comments Blood Pressure 122/68 04/19/2025 10:11 AM EDT Pulse 75 09/07/2024 8:08 AM EST Temperature - - Respiratory Rate - - Oxygen Saturation - - Inhaled Oxygen Concentration - - Weight - - Height - - Body Mass Index - - Plan of Treatment Upcoming Encounters Date Type Department Care Team (Late st Contact Info) Description 10/17/2025 10:00 AM EST Office Visit [facility] [address] [place] [address] Sanam Haque Health Maintenance Due Date Last Done Comments Depression Screening 1983 Diabetes: Hemoglobin A1C 1983 HIV Screening 1983 Lipid Panel 1983 SDOH Screening 1983 Disability Screening 1983 Diabetes: Foot Exam 1993 Eye Exam 1993 Alcohol/Substance Use Screening 1995 Family Planning (PISQ) 1998 HPV Vaccines (1 - 3-dose series) 1998 Hepatitis C Screening 2001 Diabetes: Urine Protein Screening 2002 Hepatitis B Vaccines (1 of 3 - 19+ 3-dose series) 2002 Pap Smear 2004 Cervical Cancer Screening 2013 HPV/Cotest 2013 Mammogram 2023 Influenza Vaccine (#1) 2025 , 06/13/2021, 06/03/2020, Additional history exists Dental X-Ray: Bitewings 09/08/2025 09/07/20 24, 04/12/2022, 12/06/2020, Additional history exists Dental Oral Exam 10/08/2025 04/06/2025, , 04/12/2022, Additional history exists Dental Prophylaxis 10/08/2025 04/06/2025, 1 11/08/2023, 12/06/2020, Additional history exists Tobacco Screening 04/19/2026 04/19/2025 Dental X-Ray: Full Mouth 09/08/2027 09/07/2024, 08/05/2016 DTaP/Tdap/Td Vaccines (3 - Td or Tdap) 03/22/2031 03/22/2021, 06/12/2017 Zoster Vaccines (1 of 2) 2033 RSV Patients and Patients Aged 60 years or older (1 - 1-dose 75+ series) 2058 Pneumococcal Vaccine: Pediatrics (0 to 5 Years) and At-Risk Patients (6 to 49) Years Completed 12/28/2021 COVID-19 Vaccine Completed 06/03/2024, , 01/31/2021 HIB Vaccines Aged Out No longer eligi ble based on patient's age to complete this topic Hepatitis A Vaccines Aged Out No long er eligible based on patient's age to complete this topic IPV Vaccines Aged Out No longer eligi ble based on patient's age to complete this topic Meningococcal B Vaccine Aged Out No l onger eligible based on patient's age to complete [...] Procedure Name Priority Date/Time Associated Diagnosis Comments CASE PRESENTATION, DETAILED AND EXTENSIVE TREATMENT PLANNING Routine 04/19/2025 10:00 AM EDT Dental caries 9 F(V) RESIN-BASED COMPOSITE - 1 SURF, ANTERIOR Routine 04/19/2025 10:00 AM EDT Dental caries 14 MO RESIN-BASED COMPOSITE - 2 SURF, POSTERIOR Routine 04/19/2025 10:00 AM EDT Dental caries PERIODIC ORAL EVALUATION - ESTABLISHED PATIENT Routine 04/06/2025 1:00 PM EDT Dental caries ORAL HYGIENE INSTRUCTIONS Routine 04/06/2025 1:00 PM EDT Dental caries CASE PRESENTATION, DETAILED AND EXTENSIVE TREATMENT PLANNING Routine 04/06/2025 1:00 PM EDT Dental caries PROPHYLAXIS - ADULT Routine 04/06/2025 1 :00 PM EDT Dental caries CASE PRESENTATION, DETAILED AND EXTENSIVE TREATMENT PLANNING Routine 03/24/2025 9:00 AM EDT Full coverage crown needed for tooth at risk for fracture 4 CROWN - PORCELAIN/CERAMIC Routine 03/24/2025 9:00 AM EDT Full coverage crown needed for tooth at risk for fracture CASE PRESENTATION, DETAILED AND EXTENSIVE TREATMENT PLANNING Routine 03/08/2025 10:00 AM EDT Full coverage crown needed for tooth at risk for fracture Dental caries CROWN PREP Routine 03/08/2025 10:00 AM EDT Full coverage crown needed for tooth at risk for fracture Dental caries 4 CORE BUILDUP, INCL ANY PINS WHEN REQ Routine 03/08/2025 10:00 AM EDT Full coverage crown needed for tooth at risk for fracture Dental caries INTRAORAL - COMPLETE SERIES OF RADIOGRAPHIC IMAGES Routine 09/07/2024 8:00 AM EST Dental caries Secondary dental caries associated with failed or defective dental anabaptism Gingivitis from Last 3 Months or Most Recently Relevant to Health Maintenance Insurance [facility] STAND ADULT
--- OUTSIDE RECORDS SUMMARY | 2025-05-23 10:47 | XMS_ITS | Clinical Summary ---
Author Organization [address] [facility] Address [address] [place] [address] Phone Care Team Providers Care Germ Drier Name Role Phone Maritza Chowdary MD Primary Care Provider [phone] Allergies Active Allergy Reactions Criticality Noted Date Comments Will Rash Medium 05/18/2021 Latex Rash High 05/18/2021 swelling Medications Vraylar 6 mg capsule Take 1 capsule (6 mg total) by mouth 1 (one) time each day. 08/17/20 24 Active famotidine (PEPCID) 40 mg tablet Take 1 tablet (40 mg total) by mouth at bedtime. 02/02/20 24 Active pantoprazole (PROTONIX) 40 mg EC tablet Take 1 tablet (40 mg total) by mouth 1 (one) time each day. 01/03/20 24 Active lamoTRIgine (LaMICtal) 25 mg tablet Take 2 tablets (50 mg total) by mouth 2 (two) times a day. Active ferrous sulfate 325 mg (65 mg iron) EC tablet Take 1 tablet (325 mg total) by mouth 3 (three) times a day with meals. Do not crush, chew, or split. Active aspirin 325 mg EC tablet Take 1 tablet (325 mg total) by mouth 2 (two) times a day for 21 days. To prevent Blood Clots; Take twice a day for 3 wks 42 each 05/03/20 25 025 Active celecoxib (CeleBREX) 200 mg capsule Take 1 capsule (200 mg total) by mouth 2 (two) times a day. 60 capsule 05/03/20 Active acetaminophen (TYLENOL) 500 mg tablet Take 2 tablets (1,000 mg total) by mouth every 8 (eight) hours. 180 each 05/03/20 Active acetaminophen (TYLENOL 8 HOUR) 650 mg 8 hr tablet Take 1 tablet (650 mg total) by mouth. 03/25/20 Discontinu ed(Stop Taking at Discharge) lidocaine (LIDODERM) 5 % patch 1 patch 1 (one) time each day if needed. 05/13/20 Discontinu ed(Stop Taking at Discharge) Botox 200 unit injection 04/21/20 Discontinu ed(Therapy completed) traMADoL (ULTRAM) 50 mg tablet Take 1 tablet (50 mg total) by mouth every 6 (six) hours if needed. for moderate pain 03/02/20 Discontinu ed(Therapy completed) ibuprofen-glyc mk 600 mg kit 600 mg, 1, tablet, By Mouth, Every 6 hours, PRN, # 40 tablet, Refills 0, Maintenance, Pain , Mild for pain, 10/07/22 2:24:00 PM EST, Partial fill upon patient request if the prescription is for a schedule II opioid drug. 10/07/19 Discontinu ed(Stop Taking at Discharge) cyclobenzaprin e (FLEXERIL) 5 mg tablet Take 1 Tablet by mouth 3 times daily as needed. - Oral Route: Take 1 Tablet by mouth 3 times daily as needed. - Oral Discontinu ed(Therapy completed) triamcinolone acetonide (KENALOG-40) 40 mg/mL injection Inject 1 mL into the articular space once for 1 dose. - Intra-articular Discontinu ed(Stop Taking at Discharge) oxyCODONE (ROXICODONE) 5 mg immediate release tabletIndicati ons:Nontraumat ic complete tear of left rotator cuff,Impingeme nt syndrome of left shoulder Take 1 tablet (5 mg total) by mouth every 4 (four) hours if needed for severe pain for up to 7 days. Max Daily Amount: 30 mg 20 each 05/03/20 senna-docusate (PERICOLACE) 8.6-50 mg per tablet Take 2 tablets by mouth at bedtime for 10 days. May stop if no longer using narcotic medication; Or loose stools 20 each 05/03/20 25 025 Active Problems Problem Noted Date Diagnosed Date Impingement syndrome of left shoulder 03/07/2025 Nontraumatic complete tear of left rotator cuff 03/07/2025 Right carpal tunnel syndrome 07/02/2022 Bilateral carpal tunnel syndrome 12/29/2021 De Quervain's tenosynovitis, bilateral Encounters Date Type Department Care Team Description 05/18/2025 10:30 AM EDT Office Visit [facility] [address] [facility] [address] [place] [phone] Sparkle Dias PA S/P left rotator cuff repair (Primary Dx); Post-operative state 05/03/2025 9:35 AM EDT Anesthesia Event [facility] [address] [place] [address] Tyrell Park DO 05/03/2025 9:30 AM EDT - 05/03/2025 12:[address] [facility] OR [address] [place] [phone] Jesse Pierre MD ARTHROSCOPY LEFT SHOULDER REPAIR ROTATOR CUFF [15118 (CPT ) +1 more] 05/03/2025 7:39 AM EDT - 05/03/2025 12:52 PM EDT Hospital Encounter [facility] OR [address] [place] [phone] Jesse Pierre MD Nontraumatic complete tear of left rotator cuff (Primary Dx); Impingement syndrome of left shoulder Discharge Disposition: Home or Self Care 04/20/2025 Telephone [facility] [address] [facility] [address] [place] [phone] Deena Austin MA 03/07/2025 9:00 AM EDT Consult [facility] [address] [facility] [address] [place] [phone] Jesse Pierre MD Impingement syndrome of left shoulder (Primary Dx); Nontraumatic complete tear of left rotator cuff 03/07/2025 Telephone [facility] [address] [phone] Deena Austin MA from Last 3 Months Surgical History Surgery Date Site/Laterality Comments OTHER SURGICAL HISTORY PROCEDURE: TX RPR UMBILICAL HRNA 5 YRS/> REDUCIBLE APPENDECTOMY PROCEDURE: HISTORICAL APPENDECTOMY BARIATRIC SURGERY 12/14/2024 - 01/12/2025 PROCEDURE: TX LAPS GSTRC RSTRICTIV PX LONGITUDINAL GASTRECTOMY; COMMENT: Sleeve gastrectomy SECTION 06/11/2021 PROCEDURE: HISTORICAL DELIVERY x2 TUBAL LIGATION 06/11/2021 salgingectomy HEMORRHOID SURGERY CARPAL TUNNEL RELEASE Bilateral SHOULDER ARTHROSCOPY W/ ROTATOR CUFF REPAIR 05/03/2025 Left Left rotator cuff repair; single anchor; Augmentation; SAD; hypermobile Glenohumeral joint Medical History Medical History Date Comments Bipolar disorder ([facility] V24, [facility] V28) DX:Bipolar disorder ([facility]) Migraines DX:Migraines Mood swings DX:Mood swings Low back pain DX:Low back pain Esophageal reflux DX:Esophageal reflux Diabetes mellitus ([facility] V24, [facility] V28) Anemia Anxiety Chronic pain disorder Depression Arthritis Social History Tobacco Use Types Packs/Day Years Used Date Smoking Tobacco: Former Cigarettes Q uit: 2020 Smokeless Tobacco: Former Tobacco Cessation:Counseling Given: Not Answered Alcohol Use Standard Drinks/Week Comments Yes 0 [...] PM EDT Sexual Orientation Not on file Obstetrics History Last Filed Vital Signs Vital Sign Reading Time Taken Comments Blood Pressure 129/78 05/03/2025 11:51 AM EDT Pulse 80 05/03/2025 11:51 AM EDT Temperature 35.5 C (95.9 F) 05/03/2025 11:51 AM EDT Respiratory Rate 18 05/03/2025 11:51 AM EDT Oxygen Saturation 100% 05/03/2025 11:51 AM EDT Inhaled Oxygen Concentration - - Weight 88.5 kg (195 lb) 04/26/2025 12:00 PM EDT Height 157.5 cm (5' 2 ) 04/26/2025 12:00 PM EDT Body Mass Index 35.67 04/26/2025 12:00 PM EDT Plan of Treatment Upcoming Encounters Date Type Department Care Team (Late st Contact Info) Description 08/03/2025 9:00 AM EST Office Visit [facility] [place] [address] [facility] [address] [place] [phone] Sparkle Dias PA 175 [facility] [address] [place] [address] Health Maintenance Due Date Last Done Comments Breast Cancer Screening 1983 Diabetes: Annual GFR (Glomerular Filtration Rate) 1983 Diabetes: Annual Foot Exam 1993 Diabetes: Annual Retina Eye Exam 1993 Hepatitis B Vaccines (1 of 3 - 19+ 3-dose series) 2002 Cervical Cancer Screening: Pap Smear 2004 Cholesterol Screening (Lipid Panel) 08/25/2022 HIV Screening 08/25/2022 Hepatitis C Screening 08/25/2022 Social Influencers of Health Screening 08/25/2022 Depression Screening 09/15/2024 Diabetes: Annual Urine Albumin-Creatinine Ratio (uACR) 10/19/2024 Diabetes: Blood Sugar Control Test (HGBA1C) 10/19/2024 Influenza Vaccine (#1) 2025 , 06/13/2021, 06/03/2020, Additional history exists DTaP,Tdap,and Td Vaccines (3 - Td or Tdap) 03/22/2031 03/22/2021, 06/12/2017 Pneumococcal Vaccine: Pediatrics (0 to 5 Years) and At-Risk Patients (6 to 49 Years) Completed 12/28/2021 COVID-19 Vaccine Completed 06/03/2024, [...] on patient's age to complete this topic Medical Devices Implanted Type Area Chronometer Adjuster Device Identifier Shelf Expiration Date Model / Serial / Lot [place] Bone Arthro Del Sys Advncd - Sn/A - [id number] Implanted:Qty: 1 on 05/03/2025 by Jesse Pierre MD at [facility] Arthroscopy Implants Sports Med Left: Shoulder MINA AND NEPHEW - ENDOSCOPY 10/14/2027 [id number] / N/A / [id number] Anchors Tendon 8 - Sn/A - [id number] Implanted:Qty: 1 on 05/03/2025 by Jesse Pierre MD at [facility] Arthroscopy Implants Sports Med Left: Shoulder MINA AND NEPHEW - ENDOSCOPY 01/12/2028 2504-1 / N/A / [id number] [place] Sut 5.5mm Healicoil Regenesorb 3 Sutures - Sn/A - [id number] Implanted:Qty: 1 on 05/03/2025 by Jesse Pierre MD at [facility] Arthroscopy Implants Sports Med Left: Shoulder MINA AND NEPHEW - ENDOSCOPY 01/16/2028 [id number] / N/A / [id number] Implant Bioinductive W/Arth Del Med - Sn/A - [id number] Implanted:Qty: 1 on 05/03/2025 by Jesse Pierre MD at [facility] [employer]obiologics Left: Shoulder MINA AND NEPHEW - ENDOSCOPY 01/13/2028 [id number] / N/A / [id number] Procedures Procedure Name Priority Date/Time Associated Diagnosis Comments XR SHOULDER 2+ VIEWS LEFT Routine 05/18/2025 10:23 AM EDT S/P left rotator cuff repair Post-operative state OXYGEN THERAPY, ADULT Routine 05/03/2025 11:07 AM EDT TX ARTHROSCOPY SHOULDER DECOMPR SUBACROMIAL SPACE W/PART ACROMIOPLASTY 05/03/2025 9:35 AM EDT Nontraumatic complete tear of left rotator cuff Case Notes Interscalene block Special Needs 03/07/25 Left VM for patient to call back to schedule surgery Time Change don/ Deena via phone 04/14 JT TX ARTHROSCOPY SHOULDER SURGICAL WITH ROTATOR CUFF REPAIR 05/03/2025 9:35 AM EDT Nontraumatic complete tear of left rotator cuff Case Notes Interscalene block Special Needs 03/07/25 Left VM for patient to call back to schedule surgery Time Change emmanuel Shaffer via phone 04/14 JT TH AN NERVE BLOCK INTERSCALENE (NO CHARGE) Routine 05/03/2025 9:20 AM EDT TH AN NERVE BLOCK INTERSCALENE (CHARGE) Routine 05/03/2025 9:20 AM EDT POC PREGANCY, URINE SCREENING Routine 05/03/2025 9:15 AM EDT from Last 3 Months Results * XR Shoulder 2+ Views Left [...] as above Read by: Sparkle Dias PA-C us Sparkle PATTERSON IMG XR PROCEDURES Final Resul t * TH AN NERVE BLOCK INTERSCALENE (CHARGE), TH AN NERVE BLOCK INTERSCALENE (NO CHARGE) (05/03/2025 9:20 AM EDT) Narrative Tyrell Park DO - 05/03/2025 9:20 AM EDT Tyrell Park DO 05/03/2025 9:22 AM Peripheral Block Patient location during procedure: holding area Start time: 05/03/2025 9:15 AM End time: 05/03/2025 9:20 AM Reason for block: at surgeon's request Staffing Performed: anesthesiologist Anesthesiologist: Tyrell Park DO Preanesthetic Checklist Completed: patient identified, IV checked, site marked, risks and benefits discussed, surgical consent, monitors and equipment checked, pre-op evaluation and timeout performed Peripheral Block Patient position: sitting Prep: ChloraPrep Patient monitoring: heart rate and continuous pulse ox Block type: interscalene Laterality: left Injection technique: single-shot Guidance: ultrasound guided Needle Needle localization: ultrasound guidance Medications Administered bupivacaine PF (MARCAINE) injection 0.5% - epidural 20 mL - 05/03/2025 9:20:00 AM dexamethasone (PF) (DECADRON) injection 10 mg/mL - intravenous 4 mg - 05/03/2025 9:20:00 AM Assessment Injection assessment: negative aspiration for heme, no paresthesia on injection, incremental injection with negative aspiration q 5ml and local visualized surrounding nerve on ultrasound Additional Notes Procedure performed for post operative pain control us Tyrell Park DO ANESTHESIA ORDERABLES Final Result * POC , urine NO CHARGE screening manually resulted (05/03/2025 9:15 AM EDT) HCG, Ur POC Negative Negative POC hCG Int QC Pass? Yes Yes Urine Urine specimen obtained by clean catch procedure / Unknown 05/03/2025 9:15 AM EDT us Jesse Pierre MD POINT OF CARE TEST ENTER/EDIT ORDERABLES Final Result from Last 3 Months Insurance [facility] Advance Directives * Full Code - Default (Latest Code Status on File) Date Activated Date Inactivated Comments 05/03/2025 7:48 AM 05/03/2025 2:52 PM This is orde r is used when code status has not been discussed with the patient, or code status is otherwise unknown/unconfirmed To update the patient's code status, place a code status order. Do not modify or discontinue any currently active code status orders. Care Teams Germ Drier Relationship Specialty Start Date End Date Maritza Chowdary MD [address] [place] [address] [place] [address] PCP - General Internal Medicine 04/25/25
--- OUTSIDE RECORDS SUMMARY | 2025-05-23 10:47 | XMS_ITS | Encounter Summary ---
Author Organization [facility] [employer] [facility] Address [address] [place] [address] [address] [place] [address] Care Team Providers Care Roll Out Manager Name Role Phone Unavailable Primary Care Provider Unavailabl e Encounter Details Date Type Department Care Team (Latest Contact Info) Description 12/06/2020 Abstract [facility] CONVERSIONS Dental, Provider, DDS Social History Tobacco [...] Description 10/17/2025 10:00 AM EST Office Visit [facility] ADULT DENTAL [address] [place] [address] Sanam Haque documented as of this encounter Visit Diagnoses Not on filedocumented in this encounter
--- OUTSIDE RECORDS SUMMARY | 2025-05-23 10:47 | XMS_ITS | Encounter Summary ---
Author Organization [facility] [employer] [facility] Address [address] [place] [address] [address] [place] [address] Care Team Providers Care Bulb Grader Name Role Phone Unavailable Primary Care Provider Unavailabl e Encounter Details Date Type Department Care Team (Latest Contact Info) Description 04/12/2022 Abstract [facility] CONVERSIONS Dental, Provider, DDS Social History Tobacco [...] Description 10/17/2025 10:00 AM EST Office Visit [facility] ADULT DENTAL [address] [place] [address] Sanam Haque documented as of this encounter Visit Diagnoses Not on filedocumented in this encounter
== END 2025-05-23 09:31 | disposition home or self-care (01) ==
LOC: HO.MAMMO 09:30
PROVIDERS: PCP Internal Medicine; Visit Provider Internal Medicine
DX: Z12.31 Encounter for screening mammogram for malignant neoplasm of breast (principal)
CPT/HCPCS: 77063; 77067

== ENCOUNTER → 2025-05-23 09:45 | Outpatient (BNV) | payer OTHER, SELFPAY | PROVIDERS: PCP Internal Medicine; Visit Provider Internal Medicine | DX: Z12.31 Encounter for screening mammogram for malignant neoplasm of breast (principal) | CPT/HCPCS: 77063; 77067 ==